=== PATIENT | male | born 2000 | race Caucasian/White ===

== ENCOUNTER 2022-03-25 04:41 | Emergency (ER) | payer OTHER ==
[2022-03-25] MEDS ORDERED: diphenhydrAMINE HCL 50 MG CAPSULE PO ONE (05:44)
[2022-03-25] MEDS ORDERED: LORATADINE 10 MG TABLET PO ONE (05:51)
[2022-03-25] MEDS ORDERED: CALAMINE 8% TOPICAL LOTION 177 ML BOTTLE TP ONE (05:52)
[2022-03-25] MEDS ORDERED: diphenhydrAMINE HCL 12.5 MG/5 ML UNIT-DOSE CUPS PO ONE (05:52)
[2022-03-25 05:53] VITALS: BP 113/77; PULSE 55; TEMP 98.4; BMI 22.8
[2022-03-25] MEDS ORDERED: HYDROCORTISONE 2.5% TOPICAL CREAM 30 GM TUBE TP ONE (06:00)
[2022-03-25] MEDS ORDERED: diphenhydrAMINE HCL 12.5 MG/5 ML UNIT-DOSE CUPS ONE (06:06)
[2022-03-25] MEDS ORDERED: CEPHALEXIN MONOHYDRATE 250 MG CAPSULE (FP) PO ONE (06:11)
[2022-03-25] MEDS ORDERED: CEPHALEXIN MONOHYDRATE 250 MG CAPSULE (FP) ONE (06:19)
== END 2022-03-25 06:36 | disposition home or self-care (01) ==
LOC: JER 04:41
DX: R21 Rash and other nonspecific skin eruption (principal)
CPT/HCPCS: 99283-25